=== PATIENT | male | born 1940 | race Caucasian/White ===

== ENCOUNTER 2016-07-31 08:48 | Emergency (ER) | payer OTHER ==
[~2016-07-31] VITALS: Ht 172.7 cm; Wt 107.0 kg
[~2016-07-31 08:48] MED LIST: GLC500 PO; LISI-461 PO; PIOG1TAB23 PO; RANI150T2 PO; ZCR40 PO
[2016-07-31 08:57] VITALS: TEMP 37.1; Ht 172.7 cm; Wt 107.0 kg
[2016-07-31] MEDS ORDERED: OMEP40CA41 PO (09:21)
[2016-07-31] MEDS ORDERED: PIOG1TAB25 PO (09:21)
--- NOTE | 2016-07-31 09:47 | DIAGNOSTIC IMAGING REPORT ---
CERVICAL SPINE CT CT DOSE: 557.76 mGycm HISTORY: Pain neck pain TECHNIQUE: Multiaxial CT images of the cervical spine were performed and reformatted in the sagittal and coronal plane without the use of contrast. COMPARISON: None. FINDINGS: No evidence for compression deformity. Straightening of the normal cervical curvature. Degenerative intervertebral disc change considered significant at C5-C7. Slight grade 1. Reversal subluxation C5 on C6 estimated at 3 mm. This presumably is degenerative. Prevertebral soft tissues are unremarkable. Mild osteophytic narrowing of the bulk of the neuroforamina bilaterally. IMPRESSION: Moderate degenerative change. Muscle spasm. No acute process. Electronically signed by: Kelby Mccoy M.D. 07/31/2016 9:46 AM Dictated Date/Time: 07/31/2016 9:45 AM
[2016-07-31] MEDS ORDERED: AMLO2.5T PO (09:55)
[2016-07-31 10:02] VITALS: BP 116/62; PULSE 69; O2SAT 92
[2016-07-31] MEDS ORDERED: OXYC-57 PO (10:17)
--- NOTE | 2016-07-31 10:18 | EMERGENCY ROOM VISIT NOTE ---
History Report prepared by Gerri: Nora Ribeiro Under the Supervision of: Dr. Kenneth Woodall D.O. First contact with patient: 09:09 Chief Complaint: NECK PAIN Stated Complaint: BACK/NECK History of Present Illness The patient is a 76 year old male who presents to the Emergency Room with complaints of worsening neck pain starting 3 days ago. He reports waking up in the morning to neck pain. The next morning, the pain was worse and he was unable to sleep that night. He reports the pain last night was the worst it has been. He describes the pain as excruciating when he was trying to get out of bed. This morning he took a Percocet and experienced some relief. Currently, the pain is worse on the left side. The pain shoots down his arm when he moves his neck. The patient denies any other complaints. Source of History: patient Onset: 3 days ago Position: neck Symptom Intensity: excruciating Quality: other (pain) Timing: worsening Modifying Factors (Worsening): movement Modifying Factors (Relieving): narcotics Note: Pt reports arm pain with neck movement. Pt reports no other symptoms. Review of Systems See HPI for pertinent positives & negatives. A total of 10 systems reviewed and were otherwise negative. Past Medical & Surgical Medical Problems: (1) Benign hypertension (2) BPH (benign prostatic hypertrophy) (3) Diabetes mellitus type 2 (4) Diverticulosis (5) Dyslipidemia (6) Hemorrhoids (7) History of colonic polyps (8) Hypertriglyceridemia (9) Renal calculus Surgical Problems: (1) Status post lumbar surgery Family History Diabetes mellitus BROTHER Prostate cancer FATHER Social History Smoking Status: Never Smoker Alcohol Use: occasionally Drug Use: none Marital Status: Occupation Status: employed Current/Historical Medications Scheduled Amlodipine Besylate (Norvasc), 1 TAB PO DAILY Lisinopril (Lisinopril), 10 MG PO HS Metformin HCl (Metformin HCl), 500 MG PO BID Omeprazole (Prilosec), 1 TAB PO BID Pioglitazone Hcl (Pioglitazone Hcl), 1 TAB PO DAILY Ranitidine HCl (Ranitidine HCl), 150 MG PO QAM Simvastatin (Simvastatin), 40 MG PO HS Scheduled PRN Oxycodone/Acetaminophen 5MG/325MG (Percocet 5MG/325MG), 1 TAB PO Q6H PRN for Pain Allergies Coded Allergies: Penicillins (Unverified Allergy, Severe, ITCH, 07/31/16) Metronidazole (Verified Allergy, Intermediate, hives, 07/31/16) Physical Exam Vital Signs Date Time Temp Pulse Resp B/P Pulse Ox O2 Delivery O2 Flow Rate FiO2 07/31/16 10:02 69 16 116/62 92 07/31/16 08:57 37.1 76 18 151/67 97 Room Air Physical Exam CONSTITUTIONAL/VITAL SIGNS: Reviewed / noted above. GENERAL: Non-toxic in appearance. INTEGUMENTARY: Warm, dry, and [place]. HEAD: Normocephalic. EYES: without scleral icterus or trauma. ENT/OROPHARYNX: clear and moist. LYMPHADENOPATHY/NECK: Is supple without lymphadenopathy or meningismus. Mild tenderness to the right paraspinal musculature and trapezius. No midline tenderness. RESPIRATORY: Lungs clear and equal. CARDIOVASCULAR: Regular rate and rhythm. GI/ABDOMEN: Soft and nontender. No organomegaly or pulsatile mass. No rebound or guarding. Normal bowel sounds. EXTREMITIES: Warm and well perfused. BACK: No CVA tenderness. NEUROLOGICAL: Intact without focal deficits. PSYCHIATRIC: normal affect. MUSCULOSKELETAL: Normally developed with good muscle tone. Medical Decision & Procedures ER Provider Diagnostic Interpretation: Radiology results as stated below per my review and radiologist interpretation: CERVICAL SPINE CT CT DOSE: 557.76 mGycm HISTORY: Pain neck pain TECHNIQUE: Multiaxial CT images of the cervical spine were performed and reformatted in the sagittal and coronal plane without the use of contrast. COMPARISON: None. FINDINGS: No evidence for compression deformity. Straightening of the normal cervical curvature. Degenerative intervertebral disc change considered significant at C5-C7. Slight grade 1. Reversal subluxation C5 on C6 estimated at 3 mm. This presumably is degenerative. Prevertebral soft tissues are unremarkable. Mild osteophytic narrowing of the bulk of the neuroforamina bilaterally. IMPRESSION: Moderate degenerative change. Muscle spasm. No acute process. Electronically signed by: Kelby Mccoy M.D. 07/31/2016 9:46 AM Dictated Date/Time: 07/31/2016 9:45 AM ED Course 0911: Previous medical records were reviewed. The patient was evaluated in room B4. A complete history and physical examination was performed. 1019: On reevaluation, the patient is B4. I discussed the results and findings with the patient. He verbalized agreement of the treatment plan. He was discharged home. Medical Decision Differential considered: muscular pain, strain, fracture, arthritis, herniated disc. This is a 76-year-old male who presents to the ED with a chief complaint of neck pain. The patient states that he awoke with pain in his neck 4 days ago. It is been bothering him since that time. He had an extra Percocet October from a previous back surgery that seemed to help his pain today. He denies any other complaints. He just wanted to make sure nothing serious was going on. CT scan of cervical spine reveals some degenerative changes and otherwise no acute injury. The patient was given a prescription for Percocet for any continued pain. Anticipate improvement of his symptoms over the next week. Impression Primary Impression: Cervical muscle pain Scribe Attestation The scribe's documentation has been prepared under my direction and personally reviewed by me in its entirety. I confirm that the note above accurately reflects all work, treatment, procedures, and medical decision making performed by me. Departure Information Dispostion Home / Self-Care Prescriptions Oxycodone/Acetaminophen 5MG/325MG (PERCOCET 5MG/325MG) Tab 1 TAB PO Q6H Y for Pain, #20 TAB Prov: Kenneth Woodall D.O. 07/31/16 Referrals Mayo Dixon M.D. (PCP) Patient Instructions My [facility] Additional Instructions Percocet as prescribed. No driving within 6 hours of use. Do not take additional Tylenol while taking Percocet. Anticipate improvement of your symptoms over the next week.
== END 2016-07-31 10:24 | disposition home or self-care (01) ==
LOC: C.EDB 08:51
DX: M54.2 Cervicalgia (principal); I10 Essential (primary) hypertension; E11.9 Type 2 diabetes mellitus without complications; E78.5 Hyperlipidemia, unspecified; Z86.010 Personal history of colon polyps; Z83.3 Family history of diabetes mellitus; Z85.46 Personal history of malignant neoplasm of prostate; Z79.899 Other long term (current) drug therapy